=== PATIENT | female | born 1970 | race Caucasian/White ===

== ENCOUNTER 2016-07-30 19:52 | Observation (INO) | payer MEDICAID ==
[~2016-07-30] VITALS: Ht 165.1 cm; Wt 75.5 kg
--- NOTE | ~2016-07-30 | CN ---
PATIENT NAME:EVANGELINA BOLAND MEDICAL RECORD: [id number] : 68 LOCATION:D. D.2114 ADMIT DATE: 07/30/16 ACCOUNT: [id number] CONSULTING PHYSICIAN: JOSHUA STONE MD REFERRING PHYSICIAN: SYED CLEMENTE MD DATE OF CONSULTATION: 07/31/2016 Cardiology Consultation ADMITTING DIAGNOSES: 1. Chest pain. 2. Family history of coronary artery disease. 3. Smoking history. 4. Intermittent hypertension. HISTORY OF PRESENT ILLNESS: Mrs. Boland presents with chest pain. She was hypertensive at that time at 160-180 systolic. This morning, however, she is 106 systolic. She is not on any medications for blood pressure. She has no previous cardiac history. Troponin is normal. Her EKG is normal. Her chest pain started 3 days ago when she was given tramadol. It is clearly in association to taking the tramadol. She is taking tramadol for bladder problems. PHYSICAL EXAMINATION: GENERAL APPEARANCE: Well-nourished, well-developed, appears stated age. Level of distress, comfortable. PSYCHIATRIC: Mental status, alert, normal affect. Orientation, oriented to time, place and person. EYES: Lids and conjunctiva, noninjected. No discharge, no pallor. ENT: Lips, teeth, gums, normal dentition. Oropharynx, no cyanosis, no pallor. NECK: Carotid arteries, bilateral normal upstroke, no bruits, no thrills. JUGULAR VEINS: No jugular venous pressure or distention. CERVICAL LYMPH NODES: Nontender, nonenlarged. THYROID: Not enlarged. Nontender. No nodules. LUNGS: Respiratory effort, unlabored. CHEST: Normal curvature. No thoracic deformity. No chest wall tenderness. Percussion, resonant. Auscultation, clear. No wheezes, no rales, no rhonchi. CARDIOVASCULAR: Precordial exam, nondisplaced. No heaves or pericardial thrills. Rate and rhythm, regular. Heart sounds, normal S1, normal S2. No S3, no gallop, no rub. Systolic murmur, not heard. Diastolic murmur, not heard. EXTREMITIES: No cyanosis, no edema. Peripheral pulses, full and equal in all extremities, except as noted. No bruits appreciated. ABDOMEN: Soft, nondistended. Normal aorta. No bruit. Nontender. No masses. Liver, nontender, no hepatomegaly. Spleen, nontender, no splenomegaly. MUSCULOSKELETAL: No joint tenderness. No joint swelling. No erythema. NEUROLOGICAL: Normal gait, normal strength, normal tone. SKIN: Warm and dry. REVIEW OF SYSTEMS: The patient reports easy bruising but reports no swollen glands. The patient reports no fever, no night sweats, no significant weight gain, no significant weight loss. No significant exercise tolerance. The patient reports no dry eyes, no irritation, no vision change. Patient reports no difficulty hearing and no ear pain. Patient reports no frequent nose bleeds or nose and sinus problems. Patient reports on arm pain on exertion. No shortness of breath while lying down. No history of heart murmur. Patient CONSULT REPORT [id number] EVANGELINA BOLAND reports no cough, no wheezing or coughing up blood. Patient reports no abdominal pain, no vomiting. Normal appetite. No diarrhea and not vomiting blood. No nausea and no constipation. Patient reports no incontinence. No difficulty urinating. No hematuria. No increased frequency. Patient reports no muscle aches. No weakness, no arthralgias, no back pain. No swelling of the extremities. Patient reports no abnormal mole, no jaundice, no rashes. Reports no loss of consciousness. No weakness and no numbness. No seizures, dizziness, or headaches. The patient reports no depression, no sleep disturbance, feeling safe in a relationship and no alcohol abuse. Patient reports on fatigue. Reports no runny nose or sinus pressure. No itching, no hives, and no frequent sneezing. OVERALL IMPRESSION: Most likely, the chest pain is GI in relation to the tramadol. She was hypertensive last night, but she was in pain. She is not hypertensive today, would not start a blood pressure medication. She has a normal EKG, normal troponin. We will discharge and perform stress testing as an outpatient. 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
[2016-07-30 20:43] LABS: BASOPHILS 0.2 % (0-2); HEMATOCRIT 37.8 % (36.0-48.0); HEMOGLOBIN 12.6 g/dL (12-16); IMMATURE GRANULOCYTES 0.2 % (0-5); LYMPHOCYTES 38.2 % (15-50); MCH 31.9 pg (26.0-34.0); MCHC 33.3 g/dL (31.0-37.0); MCV 95.7 fL (80.0-100.0); MONOCYTES 8.5 % (2-11); NEUTROPHILS 50.9 % (40-80); PLATELET COUNT 238 10x3/uL (130-400); RBC 3.95 10x6/uL (4.00-5.40); RDW 12.6 % (11.5-14.5); WBC 5.9 10x3/uL (4.8-10.8)
[2016-07-30 21:00] LABS: ALBUMIN 3.9 g/dL (3.4-5.0); ALKALINE PHOSPHATASE 84 U/L (46-116); ALT (SGPT) 28 U/L (10-68); BILIRUBIN - TOTAL 0.37 mg/dL (0.2-1.3); CALC OSMOLALITY 289 mosm/kg (275-300); CALCIUM 9.4 mg/dL (8.5-10.1); CARBON DIOXIDE 26.2 mmol/L (21.0-32.0); CHLORIDE - SERUM 108 mmol/L (98-107); CREATININE - SERUM 0.7 mg/dL (0.6-1.3); GLUCOSE 100 mg/dL (74-106); POTASSIUM - SERUM 3.8 mmol/L (3.5-5.1); PROTEIN - SERUM 7.5 g/dL (6.4-8.2); SODIUM 145 mmol/L (136-145); UREA NITROGEN 15 mg/dL (7-18); eGFR NON AFRICAN AMERICAN > 90 mL/min (90-120)
[2016-07-30 21:11] LABS: CKMB 1.1 U/L (0.0-3.6); CREATINE KINASE 67 UL (21-215)
[2016-07-30 21:13] LABS: TROPONIN-I < 0.017 ng/mL (0.000-0.060)
[2016-07-31] VITALS: BP 133/83
--- NOTE | 2016-07-31 00:18 | NUR ---
REC FROM ER VIA WC. AMBULATED TO BED WITH STEADY GAIT. ALERT/ORIENTED X 4. DENIES CHEST PAIN AT THIS TIME. IV IN R AC INTACT SL. PLACED TELEMETRY LEADS PER ORDER. ORIENTED TO ROOM AND CALL LIGHT.
[2016-07-31] MEDS ORDERED: NICODERM C1 PATCH .2 TRANSDERM (00:44)
[2016-07-31] MEDS ORDERED: HYDROCODON-ACE1 EAC7 PO (00:47)
[2016-07-31 01:17] VITALS: BP 133/83; Ht 165.1 cm; Wt 75.5 kg
[2016-07-31 04:26] VITALS: BP 114/48
--- NOTE | 2016-07-31 06:20 | NUR ---
STATED SHE SLEPT GOOD DURING THE NIGHT WITH NO EPISODES OF CHEST PAIN. DENIES ANY NEEDS.
--- NOTE | 2016-07-31 07:30 | NUR ---
RECEIVED PT IN STABLE CONDITION DENIES ANY NEEDS OR DISCOMFORT NAD NOTED
[2016-07-31 07:59] VITALS: BP 106/51
[2016-07-31 12:40] VITALS: BP 133/89
[2016-07-31] MEDS ORDERED: TYLENOL W/CODEI1 TAB PO (13:14)
[2016-07-31] MEDS ORDERED: LOPRESSOR25 MG PO (14:14)
[2016-07-31 15:40] VITALS: BP 140/85
--- NOTE | 2016-07-31 15:45 | NUR ---
REVIEWED DISCHARGE INSTRUCTION WITH PT STATES UNDERSTANDING COPY GIVEN DCD SALINE LOCK TO RAC WITH CATHETER TIP INTACT SITE FREE OF REDNESS OR EDEMA PT DISCHARGED HOME LEFT UNIT IN STABLE CONDITION VIA W/C WITH ALL PERSONAL BELONGINGS
== END 2016-07-31 15:45 | disposition home or self-care (01) ==
LOC: D.ER 19:52 → D.M2 23:35 → OBSVTIME 23:35 → D.M2 07-31 15:45
PROVIDERS: Emergency Medicine; ADMIT Family Medicine
DX: R07.9 Chest pain, unspecified (principal); I11.0 Hypertensive heart disease with heart failure; I50.9 Heart failure, unspecified; F17.203 Nicotine dependence unspecified, with withdrawal; F41.9 Anxiety disorder, unspecified

== ENCOUNTER 2018-08-29 08:00 | Outpatient (CLI) | payer BC ==
[2016-07-31 01:17] VITALS: BMI 28.3
[~2018-08-29 08:00] MED LIST: HYDROCODON-ACE1 EAC7 PO; LOPRESSOR25 MG PO; NICODERM C1 PATCH .2 TRANSDERM; TYLENOL W/CODEI1 TAB PO
== END 2018-08-29 09:00 | disposition home or self-care (01) ==
LOC: D.MAMMO 08:00
PROVIDERS: ATTEND Nurse Practitioner Women's Health
DX: Z12.31 Encounter for screening mammogram for malignant neoplasm of breast (principal)

== ENCOUNTER 2018-10-09 08:00 | Outpatient (CLI) | payer MEDICAID ==
[2016-07-31 01:17] VITALS: BMI 28.3
== END 2018-10-09 23:59 | disposition home or self-care (01) ==
LOC: D.MAMMO 08:00
PROVIDERS: ATTEND Nurse Practitioner Women's Health
DX: R92.8 Other abnormal and inconclusive findings on diagnostic imaging of breast (principal)